=== PATIENT | female | born 1975 | race Caucasian/White ===

== ENCOUNTER 2024-12-04 17:14 | Emergency (ER) | payer OTHER ==
[2024-12-04 17:20] VITALS: BP 158/89; PULSE 98; RESP 18; TEMP 98.8; BMI 29.9
[2024-12-04] MEDS ORDERED: LIDOCAINE 4% PATCH TP ONE (18:56)
[2024-12-04] MEDS ORDERED: KETOROLAC TROMETHAMINE 30 MG/1 ML VIAL ONE (18:57)
[2024-12-04] MEDS ORDERED: CycloBENZAprine HCL 10 MG TABLET (FP) ONE (18:57)
[2024-12-04] MEDS: KETOROLAC TROMETHAMINE 30 MG/1 ML VIAL IM ONE (19:04)
[2024-12-04] MEDS: LIDOCAINE 5% TOPICAL PATCH TP ONE (19:04)
[2024-12-04] MEDS: CycloBENZAprine HCL 10 MG TABLET (FP) PO ONE (19:04)
[2024-12-04] MEDS ORDERED: LIDOCAINE PATCH REMOVAL MC SCH (22:00)
== END 2024-12-04 20:24 | disposition home or self-care (01) ==
LOC: JER 17:14 → JERFT 17:14
PROC: 3E0233Z Introduction of Anti-inflammatory into Muscle, Percutaneous Approach (ICD-10-PCS; principal; 2024-12-04)
DX: M54.50 Low back pain, unspecified (principal)
CPT/HCPCS: 99284-25